=== PATIENT | male | born 1980 | race American Indian/Alaskan Native ===

== ENCOUNTER 2020-02-16 17:08 | Emergency (ER) | payer OTHER, SELFPAY ==
[2020-02-16 17:21] VITALS: BP 138/98; PULSE 104; RESP 16; TEMP 37.1; O2SAT 98; BMI 27.4
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
[2020-02-16 18:00] VITALS: BP 128/88; PULSE 97; RESP 18; O2SAT 99
[2020-02-16 19:19] LABS: Ethanol < 10 mg/dL
[2020-02-16 20:00] VITALS: PULSE 81; RESP 16; O2SAT 97
[2020-02-16 22:00] VITALS: BP 121/74; PULSE 84; RESP 16; TEMP 37.3; O2SAT 98
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
== END 2020-02-17 | disposition home or self-care (01) ==
PROVIDERS: Nurse Practitioner Primary Care; Emergency Provider Student in an Organized Health Care Education/Training Program
DX: S60.415A Abrasion of left ring finger, initial encounter (principal); W26.8XXA Contact with other sharp object(s), not elsewhere classified, initial encounter; F16.10 Hallucinogen abuse, uncomplicated; Y93.89 Activity, other specified; Y92.010 Kitchen of single-family (private) house as the place of occurrence of the external cause; Y99.9 Unspecified external cause status
CPT/HCPCS: 36415; 80320; 99284

== ENCOUNTER 2020-10-03 01:45 | Emergency (ER) | payer OTHER, SELFPAY ==
[2020-10-03 01:51] VITALS: BP 163/99; PULSE 78; RESP 16; TEMP 36.7; O2SAT 98; BMI 26.6
--- NOTE | 2020-10-03 01:58 | PC.NURSE ---
pt to room, chg into gown and awaiting for md's eval.
--- NOTE | 2020-10-03 02:20 | ED_ITS ---
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 In addition, he denies any radiation into either lower extremity, denies urinary symptoms as well as no evidence of fever chills. Related Data Previous Rx's Medication Instructions Recorded cyclobenzaprine 10 mg tablet 10 mg PO BEDTIME PRN #3 tab 10/03/20 ketorolac 10 mg tablet 10 mg PO Q6H PRN 5 Days #20 tab 10/03/20 Allergies Allergy/AdvReac Type Severity Reaction Status Date / Time No Known Allergies Allergy Unverified 11/04/19 17:45 Review of Systems Review of Systems: Pertinent positives and negatives as stated in the HPI and 10 point review of systems is otherwise negative. PMFSH Past Medical History Source: nursing notes reviewed Medical History No known health problems Social History Social History Advance Directives: No Physical Exam Vital Signs: Vital Signs: Last Vital Signs Temp 98.0 F 10/03/20 01:51 Pulse 78 10/03/20 01:51 Resp 16 10/03/20 01:51 BP 163/99 H 10/03/20 01:51 Pulse Ox 98 10/03/20 01:51 Body Mass Index 26.6 VITAL SIGNS: Reviewed. GENERAL: Well developed, well nourished, in no acute distress. HEAD: Normocephalic/atraumatic EYES: PERRLA, EOMI LUNGS: Normal breath sounds. No adventitious sounds or accessory muscle use. SpO2<98> CARDIOVASCULAR: Regular rate and rhythm without noted murmurs ABDOMEN: Soft, non-tender, non-distended with bowel sounds, no CVA tenderness BACK: No mid vertebral tenderness on palpation, no paraspinal discomfort on palpation, straight leg test negative NEUROLOGIC: Alert and oriented x 4. Strength and sensation to light touch were grossly intact x 4. Course Course Course Narrative: 40-year-old male with history and clinical presentation consistent with acute on chronic back pain likely secondary to exacerbating event during work. Patient given combination analgesics to include lidocaine patch and Flexeril as well as UA and will re-evaluate. Review of all investigations otherwise negative for acute findings and on re- evaluation patient reports some mild relief and he was encouraged to continue with the regimen provided in the discharge instructions and follow-up with his primary care provider. MDM - Back Pain/Injury Lab Data Labs: Lab Results 10/03/20 Range/Units 02:31 Urine Color STRAW Urine Appearance CLEAR Urine pH 6.0 (5.0-8.0) Ur Specific Wells 1.010 (1.005-1.025) Urine Protein NEG (NEG-TRACE) MG/DL Urine Glucose (UA) NEG (NEG) MG/DL Urine Ketones NEG (NEG) MG/DL Urine Blood NEG (NEG) Urine Nitrite NEG (NEG) Ur Leukocyte Esterase NEG (NEG) Discharge Plan Discharge Clinical Impression: Back pain, Muscle spasm Patient Disposition: Home, Self-Care Additional Instructions: 1. Tylenol 1000 mg, orally, every 6 hours as needed for pain control. Do not exceed 4000 mg within 24 hours. 2. Yaup-fsu-[id number] lidocaine patch, apply to area of maximal tenderness as directed on the outside packaging. 3. Follow-up with your primary care provider in the next 2-3 days for re- evaluation and further outpatient management. Return to the ER for acute worsening of symptoms. Prescriptions: New ketorolac 10 mg tablet 10 mg PO Q6H PRN (Reason: pain) 5 Days Qty: 20 RF: 0 cyclobenzaprine 10 mg tablet 10 mg PO BEDTIME PRN (Reason: muscle spasm) Qty: 3 RF: 0 Referrals: Physician,Unknown [Primary Care Provider] - 2 days Stand Alone Forms: Work/School Release
[2020-10-03] MEDS: Ketorolac Tromethamine 15 MG/ML VIAL IM (02:26)
[2020-10-03] MEDS: Acetaminophen 325 MG TABLET 975 MG PO (02:26)
[2020-10-03] MEDS: Lidocaine 4 % Patch ADH..PATCH 1 PATCH TRANSDERMA (02:27)
[2020-10-03 02:37] LABS: Glucose Urine UA NEG (NEG); Leukocyte Esterase Urine NEG (NEG); Nitrite Urine NEG (NEG); Urine Blood NEG (NEG); Urine Ketones NEG (NEG); Urine Protein NEG (NEG-TRACE)
--- NOTE | 2020-10-03 02:38 | PC.NURSE ---
PT MEDICATED FOR PAIN. UA SENT TO LAB.
[2020-10-03 02:44] LABS: Appearance Urine CLEAR; Color Urine STRAW
[2020-10-03] MEDS: Cyclobenzaprine HCl 10 MG TABLET PO (03:10)
--- NOTE | 2020-10-03 03:12 | PC.NURSE ---
PT MEDICATED FOR PAIN.
== END 2020-10-03 03:40 | disposition home or self-care (01) ==
PROVIDERS: Emergency Provider Student in an Organized Health Care Education/Training Program
DX: M54.5 Low back pain (principal); M62.830 Muscle spasm of back
CPT/HCPCS: 81003; 96372; 99283; 99284; J1885

== ENCOUNTER 2020-10-08 14:09 | Emergency (ER) | payer OTHER, SELFPAY ==
[2020-10-08 14:27] VITALS: BP 140/80; PULSE 88; RESP 18; TEMP 36.6; O2SAT 99; BMI 26.6
--- NOTE | 2020-10-08 15:16 | ED_ITS ---
HPI - Back Pain/Injury General Chief Complaint: Back Pain/Injury Stated Complaint: back pain Time Seen by Provider: 10/08/20 15:15 History of Present Illness HPI Narrative: Patient complains of low back pain for the last 3 weeks, he was seen here 1 week ago and given Motrin and cyclobenzaprine and a lidocaine patch with no improvement, there is no numbness weakness or tingling, there is no radiation of pain there is no changes to bowel or bladder there was no trauma Related Data Previous Rx's Medication Instructions Recorded cyclobenzaprine 10 mg tablet 10 mg PO BEDTIME PRN #3 tab 10/03/20 ketorolac 10 mg tablet 10 mg PO Q6H PRN 5 Days #20 tab 10/03/20 ibuprofen 600 mg tablet 600 mg PO Q6H PRN #20 tab 10/08/20 oxycodone 5 mg tablet 5 mg PO Q6H PRN #14 tab 10/08/20 oxycodone 5 mg tablet 5 mg PO Q6H PRN #14 tab 10/08/20 oxycodone 5 mg tablet 5 mg PO Q6H PRN #14 tab 10/08/20 Allergies Allergy/AdvReac Type Severity Reaction Status Date / Time No Known Allergies Allergy Unverified 11/04/19 17:45 Review of Systems Review of Systems: Positive for back pain Negatives are no fever no chills no dizziness no weakness no fainting no feeling faint no headache no neck pain no numbness weakness or tingling no radiation of pain no chest pain no abdominal pain no dysuria no frequency no incontinence no changes to bowel or bladder no skin rash no muscle weakness no loss of sensation Yes all other systems are reviewed and are negative [facility] Past Medical History Source: nursing notes reviewed Medical History No known health problems Social History Social History Advance Directives: No Advance Directives Information Provided: No Physical Exam Vital Signs: Vital Signs: Last Vital Signs Temp 98 F 10/08/20 14:27 Pulse 88 10/08/20 14:27 Resp 18 10/08/20 14:27 BP 140/80 H 10/08/20 14:27 Pulse Ox 99 10/08/20 14:27 Body Mass Index 26.6 General appearance is no acute distress Head is normocephalic atraumatic Neck is supple nontender Respiratory no distress Abdomen soft nontender The back had bilateral paraspinal lower lumbar tenderness, no midline tenderness no CVA tenderness, skin was normal without rash wound or redness Extremities full range of motion x4 Neuro no focal motor or sensory deficits Course Course Course Narrative: Patient with back pain with no evidence of infection no neurologic deficit no changes to bowel or bladder is treated with analgesics for musculoskeletal back pain Discharge Plan Discharge Clinical Impression: Back pain Patient Disposition: Home, Self-Care Additional Instructions: You can use Motrin and Tylenol as base pain relief If needed you can use oxycodone narcotic but not if you driving or working Follow with primary doctor, Chiropractor is often helpful with this Return any concerns Prescriptions: New oxycodone 5 mg tablet 5 mg PO Q6H PRN (Reason: pain) Qty: 14 RF: 0 ibuprofen 600 mg tablet 600 mg PO Q6H PRN (Reason: pain) Qty: 20 RF: 0 oxycodone 5 mg tablet 5 mg PO Q6H PRN (Reason: pain) Qty: 14 RF: 0 oxycodone 5 mg tablet 5 mg PO Q6H PRN (Reason: pain) Qty: 14 RF: 0 No Action ketorolac 10 mg tablet 10 mg PO Q6H PRN (Reason: pain) 5 Days Qty: 20 RF: 0 cyclobenzaprine 10 mg tablet 10 mg PO BEDTIME PRN (Reason: muscle spasm) Qty: 3 RF: 0 Stand Alone Forms: Work/School Release Interventions: ED Discharge Assessment Last Done: 10/08/20 15:29 Discharge Date/Time: 10/08/20 15:30
== END 2020-10-08 15:30 | disposition home or self-care (01) ==
PROVIDERS: Emergency Provider Emergency Medicine
DX: M54.5 Low back pain (principal); Z79.899 Other long term (current) drug therapy
CPT/HCPCS: 99283

== ENCOUNTER 2022-10-27 18:53 | Emergency (ER) | payer MEDICAID, SELFPAY ==
[2022-10-27 19:09] VITALS: BP 129/84; PULSE 96; RESP 16; TEMP 36.3; O2SAT 97; BMI 27.2
--- NOTE | 2022-10-27 19:09 | ED_ITS ---
HPI - General Adult General Chief complaint: General Medical Stated complaint: facial swelling Source: patient Mode of arrival: ambulatory Limitations: no limitations History of Present Illness HPI narrative: Patient is a 42-year-old male who presents emergency department for evaluation of facial swelling Reports that after eating dinner he began feeling itching sensation to the left jaw, then developed localized swelling to this area of the mandible without pain. Denies fevers, chills, ear pain. Denies respiratory involvement. Speakingclear full sentences. Able to open mouth fully Related Data Previous Rx's Medication Instructions Recorded cyclobenzaprine 10 mg tablet 10 mg PO BEDTIME PRN muscle spasm 10/03/20 #3 tabs ketorolac 10 mg tablet 10 mg PO Q6H PRN pain 5 days #20 10/03/20 tabs ibuprofen 600 mg tablet 600 mg PO Q6H PRN pain #20 tabs 10/08/20 oxycodone 5 mg tablet 5 mg PO Q6H PRN pain #14 tabs 10/08/20 oxycodone 5 mg tablet 5 mg PO Q6H PRN pain #14 tabs 10/08/20 oxycodone 5 mg tablet 5 mg PO Q6H PRN pain #14 tabs 10/08/20 Allergies Allergy/AdvReac Type Severity Reaction Status Date / Time No Known Allergies Allergy Verified 10/27/22 19:08 Review of Systems Review of Systems: Yes all other systems are reviewed and are negative PMFSH Past Medical History Attestation statement: The following information was validated with the patient. Source: old records reviewed Medical History No known health problems Social History Social History Advance Directives: No Advance Directives Information Provided: No Physical Exam ED Vital Signs: Vital Signs - 24 hr 10/27/22 19:09 Temperature 97.3 F Pulse Rate 96 Respiratory Rate 16 Blood Pressure 129/84 Pulse Oximetry 97 Oxygen Delivery Method Room Air BMI result Body Mass Index 27.2 Appearance: Alert.?Oriented to person, place and time. No acute distress.?Normal affect. Eyes: Pupils equal, round and reactive to light.? ENT: Pharynx normal.??Uvula midline. No trismus. No drooling. TM normal bilaterally Neck: Normal inspection.? Neck supple.??No cervical lymphadenopathy. Localized swelling to the left mandibular region, consistent with parotitis CVS: Heart sounds normal. Normal heart rate and rhythm.? Pulses normal.?? Respiratory: No respiratory distress.? Lung sounds clear to auscultation bilaterally?? Abdomen: Soft and non-tender. Normoactive bowel sounds. Skin: Skin warm and dry.? Normal skin color.? Neuro: Moves all extremities spontaneously. Sensation intact bilaterally. CN II- XII intact. No focal neuro deficits. Ambulates with normal steady gait. Medical Decision Making Medical Decision Making MDM Narrative: Patient is a 42 old male presents emergency department for evaluation of facial swelling as per HPI. Physical examination appears most consistent with acute parotitis. At this time appears to be absent from any sign of infection no fever, significant tenderness upon palpation, purulent saliva noted in the oral orifice, or foul taste in the mouth. Suspect it is likely obstructive in nature, no visible sialolithiasis upon examination. We discussed conservative treatment including salivary stimulants including sour candies, localized heat, hydration, gentle massage the gland, with expectation that it should resolve within 1-5 days. Differential Diagnosis Differential Diagnoses: The differential diagnosis associated with the presentation includes (As noted above) Independent Historian Clinical information obtained from an independent historian. History obtained from or confirmed by: Spouse (Present who confirms history) Tests considered The following testing was considered but not selected: Serum labs and CT imaging, no signs of infectious etiology at this time, see narrative above, deferred Discharge Plan Discharge Clinical Impression: Acute parotitis Patient Disposition: Home, Self-Care Instructions: Parotid Duct Obstruction (ED), Sialoadenitis (ED) Additional Instructions: As discussed at this time it appears to be inflammation to the parotid gland, which is likely due to an obstruction of the salivary duct. This can happen very abruptly as described. Currently there is no sign of infection given rapid onset and you are without any fever, pain, or redness. Treatment of this includes consuming sour candies, applying localized heat, staying well hydration, gentle massage the gland/ area that is swollen, with expectation that it should resolve within 1-5 days. You may follow-up with your primary care doctor. If you develop new or worsening symptoms or concerns may return back to the emergency department for further evaluation Prescriptions: No Action oxycodone 5 mg tablet 5 mg PO Q6H PRN (Reason: pain) Qty: 14 0RF Rx Instructions: Narcotic, no driving for 6 hours after taking this medication ibuprofen 600 mg tablet 600 mg PO Q6H PRN (Reason: pain) Qty: 20 0RF oxycodone 5 mg tablet 5 mg PO Q6H PRN (Reason: pain) Qty: 14 0RF Rx Instructions: Narcotic, no driving for 6 hours after taking this medication oxycodone 5 mg tablet 5 mg PO Q6H PRN (Reason: pain) Qty: 14 0RF Rx Instructions: This medication may cause drowsiness no driving for 6 hours after taking ketorolac 10 mg tablet 10 mg PO Q6H PRN (Reason: pain) 5 Days Qty: 20 0RF cyclobenzaprine 10 mg tablet 10 mg PO BEDTIME PRN (Reason: muscle spasm) Qty: 3 0RF Interventions: ED Discharge Assessment Last Done: 10/27/22 19:59 Discharge Date/Time: 10/27/22 20:26
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
--- OUTSIDE RECORDS SUMMARY | 2022-10-27 20:02 | XMS_ITS | Continuity of Care Document ---
Author Name Unknown Organization [facility] ter Address [address] [place] [id number]- Care Team Providers Care Cloth Folder Machine Name Role Phone Adi URRUTIA, Yulia Banks Primary Care Physician [phone] Encounter [facility] Date(s): 03/23/20 - 03/30/[address] [id number] Discharge Disposition: Transfer to [facility] Facility Attending Physician: Aisha Mendoza MD Admitting Physician: Hans Churchill MD Referring Physician: Not on Staff, Referring MD Allergies, Adverse Reactions, Alerts No Known Medication Allergies Substance Reaction Severity Status NKA Active Medications acetaminophen 325 mg oral tablet 650 mg, 2, tablet, By Mouth, Every 4 hours, PRN, pain/fever, Refills 0, Maintenance, Other, 03/30/20 13:37:00 EST, Partial fill upon patient request if the prescription is for a schedule II opioid drug. Start Date: 03/30/20 Status: Ordered haloperidol 5 mg oral tablet 5 mg, 1, tablet, By Mouth, 3 times a day, PRN, Refills 0, Maintenance, Agitation, 03/30/20 13:37:00EST, Partial fill upon patient request if the prescription is for a schedule II opioid drug. Start Date: 03/30/20 Status: Ordered haloperidol 5 mg/mL injectable solution 1 mL = 5 mg, Intramuscular, 3 times a day, PRN Agitation, 0 Refills, Maintenance, 03/30/20 13:37:00EST, Injection, Partial fill upon patient request if the prescription is for a schedule II opioid drug. Start Date: 03/30/20 Status: Ordered Melatonin Tablet = 6 mg, By Mouth, Daily at bedtime, PRN Insomnia, 0 Refills, Maintenance, 03/30/20 13:37:00 EST, Tablet, Partial fill upon patient request if the prescription is for a schedule II opioid drug. Start Date: 03/30/20 Status: Ordered Multivitamin Tablet 1 tablet, By Mouth, Daily, 0 Refills, Maintenance, 03/30/20 13:37:00 EST, Tablet, Partial fill uponpatient request if the prescription is for a schedule II opioid drug. Start Date: 03/30/20 Status: Ordered Nicotine = 21 mg, Topically, Daily, 0 Refills, Maintenance, 03/30/20 13:37:00 EST, Patch, Partial fill upon patient request if the prescription is for a schedule II opioid drug. Start Date: 03/30/20 Status: Ordered nicotine 4 mg oral transmucosal gum = 4 mg, Chew, Every hour, PRN Other, Nicotine Withdrawal Symptoms (NOT to exceed 24 pieces per day), 0 Refills, Maintenance, 03/30/20 13:37:00 EST, Gum, Partial fill upon patient request if the prescription is for a schedule II opioid drug. Start Date: 03/30/20 Status: Ordered Pyridoxine Tablet 50 mg, By Mouth, Daily, Refills 0, Maintenance, 03/30/20 13:38:00 EST, Partial fill upon patient request if the prescription is for a schedule II opioid drug. Start Date: 03/30/20 Status: Ordered thiamine 100 mg oral tablet 100 mg, 1, tablet, By Mouth, 2 times a day, Refills 0, Maintenance, 03/30/20 13:38:00 EST, Partial fill upon patient request if the prescription is for a schedule II opioid drug. Start Date: 03/30/20 Status: Ordered traMADol 50 mg oral tablet 1 tablet = 50 mg, By Mouth, Every 8 hours, PRN for pain, # 60 tablet, 0 Refills, Maintenance, 03/23/20 9:57:00 EST, Tablet, Partial fill upon patient request if the prescription is for a schedule II opioid drug. Start Date: 03/23/20 Status: Ordered traZODone 50 mg oral tablet 200 mg, 4, tablet, By Mouth, Daily at bedtime, Refills 0, Maintenance, 03/30/20 13:36:00 EST, Partial fill upon patient request if the prescription is for a schedule II opioid drug. Start Date: 03/30/20 Status: Ordered Results Orders for Microbiology Reports Name Date Sputum Culture w/ Gram Smear 03/23/20 Microbiology Reports TEST:Sputum Culture STATUS:Auth (Verified) BODY SITE: SOURCE:ENDOTR COLLECTED DATE/TIME:03/23/20 10:40 AM Sputum Culture SPECIMEN DESCRIPTION : ENDOTRACHEAL ASPIRATE SPECIAL REQUESTS : NONE GRAM STAIN : 1+ SQ.EPITHELIAL CELLS 1+ GRAM POSITIVE COCCI CULTURE : 4+ NORMAL BRIA REPORT STATUS : FINAL 03/25/2020 Radiology Reports * Exam Date Time Procedure Performing Provider Status 03/23/20 11:56 AM Chest Portable Preeti Rosenberg; Auth (Verified) Notes: (Chest Portable) Reason For Exam: Cough RESULT: Chest Portable Chest Portable INDICATION: Cough, follow-up tube placement. COMPARISON: Earlier the same day. FINDINGS: Single AP semiupright portable chest x-ray labeled ET tube, OG tube, 11:35 AM. LINES AND TUBES: Endotracheal tube has been withdrawn currently 3 to 4 cm above the dahlia. Enteric tube remains in position with its tip in proximal sidehole in the proximal stomach. LUNGS AND PLEURA: Minimal basilar atelectasis, left side greater than right. No definite infiltrate. No pleural effusion. No pneumothorax. HEART, MEDIASTINUM AND HEENA: Heart is normal in size. Normal upper mediastinal and hilar contour. BONES AND SOFT TISSUES: No acute abnormality. IMPRESSION: Enteric and endotracheal tubes appear in appropriate positions. Left basilar atelectasis versus evolving infiltrate. WSN: [id number] Ordering Physician: Nicolasa Limon Dictated By: Tavon Serrano MD Dictated Date/Time: 03/23/20 1:47 pm Reviewed By: Tavon Serrano MD Signed By: Tavon Serrano MD Signed Date/Time: 03/23/20 1:47 pm Transcribed By: ANA Transcribed Date/Time: 03/23/20 1:44 pm * Exam Date Time Procedure Performing Provider Status 03/23/20 8:04 AM Chest Portable Lindsay Marley; Auth (Verified) Notes: (Chest Portable) Reason For Exam: Line/Tube Placement;Other: RESULT: Chest Portable Chest Portable Reason: Respiratory distress, Line Tube Placement COMPARISON: February 17, 2020 FINDINGS: LINES AND TUBES: Endotracheal tracheal tube in the distal trachea with its tip about 1 cm above the dahlia. Enteric catheter has its tip in proximal sidehole overlying the stomach. LUNGS AND PLEURA: Low lung volumes with bibasilar and right upper lobe atelectasis/infiltrate. No pleural effusion. No pneumothorax. HEART, MEDIASTINUM AND HEENA: Heart is normal in size. Normal upper mediastinal and hilar contour. BONES AND SOFT TISSUES: No acute abnormality. IMPRESSION: Endotracheal tube with tip 1 cm above the dahlia. Enteric catheter tip in the stomach. Low lung volumes with bibasilar and right upper lobe atelectasis/infiltrate. WSN: [id number] Ordering Physician: Tae Francois Dictated By: Jose Antonio Lara MD Dictated Date/Time: 03/23/20 8:16 am Reviewed By: Jose Antonio Lara MD Signed By: Jose Antonio Lara MD Signed Date/Time: 03/23/20 8:16 am Transcribed By: ANA Transcribed Date/Time: 03/23/20 8:15 am Vital Signs Most recent to oldest [Reference Range]: 1 2 3 Weight 82 kg (03/29/20 5:36 AM) 76.294 kg (03/28/20 8:35 AM) 75.9 kg (03/26/20 5:41 AM) Oxygen Saturation [94-100 %] 98 % (03/30/20 4:31 PM) 100 % (03/30/20 11:48 AM) 100 % (03/30/20 7:24 AM) Pulse Rate [55-90 bpm] 101 bpm *H* (03/30/20 4:31 PM) 79 bpm (03/30/20 11:48 AM) 63 bpm (03/30/20 7:24 AM) Blood Pressure [90-138/55-84 mm Hg] 136/93mm Hg (03/30/20 4:31 PM) 141/79mm Hg *H* (03/30/20 11:48 AM) 109/53mm Hg (03/30/20 7:24 AM) Respiratory Rate [16-30 br/min] 18 br/min (03/30/20 4:31 PM) 18 br/min (03/30/20 11:48 AM) 18 br/min (03/30/20 7:24 AM) Temperature [96.8-100.4 DegF] 97.7 DegF (03/30/20 4:31 PM) 98.1 DegF (03/30/20 11:48 AM) 98.2 DegF (03/30/20 7:24 AM) Liters per Minute 2 L/min (03/25/20 8:04 AM) 2 L/min (03/25/20 7:00 AM) 2 L/min (03/25/20 6:00 AM) Mode of Delivery (Oxygen) Room air (03/30/20 4:31 PM) Room air (03/30/20 11:48 AM) Room air (03/30/20 7:24 AM) Blood pressure sites Arm, right (03/30/20 4:31 PM) Arm, right (03/30/20 11:48 AM) Arm, right (03/30/20 7:24 AM) Temperature Route Oral (03/30/20 4:31 PM) Oral (03/30/20 11:48 AM) Oral (03/30/20 7:24 AM) Dry Weight 75.6 kg (03/23/20 10:36 AM) Weight Obtained Via Bed scale (03/29/20 5:36 AM) Standing scale (03/28/20 8:35 AM)
--- OUTSIDE RECORDS SUMMARY | 2022-10-27 20:02 | XMS_ITS | Continuity of Care Document ---
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 Name Role Phone Not on Staff, PCP Primary Care Physician Unavail able [place] [facility] - 02/15/[address] [address]- Encounter Diagnosis Ingestion of toxic substance(Final) - 02/15/20 Discharge Disposition: A-D/C Home Attending Physician: Javon Plummer MD Admitting Physician: Javon Plummer MD Referring Physician: Not on Staff, Referring MD Allergies, Adverse Reactions, Alerts No Known Medication Allergies Vital Signs Most recent to oldest [Reference Range]: 1 2 3 Oxygen Saturation [94-100 %] 100 % (02/15/20 1:45 PM) 99 % (02/15/20 12:05 PM) 99 % (02/15/20 10:17 AM) Pulse Rate [55-90 bpm] 87 bpm (02/15/20 1:45 PM) 76 bpm (02/15/20 12:05 PM) 74 bpm (02/15/20 10:17 AM) Blood Pressure [90-138/55-84 mm Hg] 161/87mm Hg *H* (02/15/20 1:45 PM) 125/86mm Hg (02/15/20 12:05 PM) 124/65mm Hg (02/15/20 10:17 AM) Respiratory Rate [16-30 br/min] 19 br/min (02/15/20 1:45 PM) 22 br/min (02/15/20 12:05 PM) 21 br/min (02/15/20 10:17 AM) Temperature [96.8-100.4 DegF] 98.8 DegF (02/15/20 8:18 AM) Mode of Delivery (Oxygen) Room air (02/15/20 1:45 PM) Room air (02/15/20 12:05 PM) Room air (02/15/20 10:17 AM) Temperature Route Rectal (02/15/20 8:18 AM)
--- OUTSIDE RECORDS SUMMARY | 2022-10-27 20:02 | XMS_ITS | Continuity of Care Document ---
Author Name Unknown Organization [facility] Address [address] [place] [address]- Care Team Providers Care Flow Coordinator Name Role Phone Not on Staff, PCP Primary Care Physician Unavail able Encounter [facility] Date(s): 11/09/21 - 12/09/21 [facility] [address] [place] [id number] Allergies, Adverse Reactions, Alerts No Known Allergies Immunizations Not Given Vaccine Date Status Refusal Reason influenza virus vaccine, inactivated 03/31/20 Not Given Patient Refuses Medications Melatonin Tablet = 6 mg, By Mouth, Daily at bedtime, PRN Insomnia, 0 Refills, Maintenance, 03/30/20 13:37:00 EST, Tablet, Partial fill upon patient request if the prescription is for a schedule II opioid drug. Start Date: 03/30/20 Status: Ordered mirtazapine 15 mg oral tablet 0.5 tablet = 7.5 mg, By Mouth, Daily at bedtime, # 15 tablet, 0 Refills, Maintenance, 04/03/20 16:34:00 EST, Tablet, Partial fill upon patient request if the prescription is for a schedule II opioid drug. Start Date: 04/03/20 Stop Date: 05/03/20 Status: Ordered Multivitamin Tablet 1 tablet, By [...] opioid drug. Start Date: 03/30/20 Status: Ordered traZODone 100 mg oral tablet 100 mg, 1, tablet, By Mouth, Daily at bedtime, # 14 tablet, Refills 1, Tot. Refills 1, Maintenance,04/03/20 16:34:00 EST, Print Requisition, Partial fill upon patient request if the prescription is for a schedule II opioid drug. Start Date: 04/03/20 Stop Date: 05/01/20 Status: Ordered Patient Care team information Personnel Name: Not on Staff, PCP
== END 2022-10-27 20:26 | disposition home or self-care (01) ==
PROVIDERS: Emergency Provider Emergency Medicine Emergency Medical Services; PCP General Practice
DX: K11.21 Acute sialoadenitis (principal)
CPT/HCPCS: 99282

== ENCOUNTER 2023-07-18 12:13 | Emergency (ER) | payer OTHER, MEDICAID, SELFPAY ==
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
[2023-07-18 12:21] VITALS: BP 152/97; BP 172/120; PULSE 63; PULSE 72; RESP 12; TEMP 36.7; O2SAT 98; BMI 28.1
[2023-07-18 12:24] VITALS: BP 152/97; PULSE 71; RESP 24; O2SAT 98
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
[2023-07-18] MEDS: Ondansetron ODT 4 MG TAB.RAPDIS TRANSLINGU (12:56)
[2023-07-18] MEDS: Acetaminophen 325 MG TABLET 975 MG PO (12:56)
[2023-07-18] MEDS: oxyCODONE HCl Immed Release 5 MG TABLET 10 MG PO ×2 (12:56→16:10)
[2023-07-18 13:03] LABS: MANUAL DIFF FLAG NO
[2023-07-18 13:06] LABS: Basophils Percent Auto 0.4 % (0-2); Eosinophils Absolute Auto 0.1 X10*3/uL (0.0-0.4); Eosinophils Percent Auto 1.6 % (0-4); Hematocrit 43.1 % (42.0-52.0); Hemoglobin 14.7 g/dl (14.0-18.0); Imm Gran Abs Auto 0.02 X10*3/uL (0.00-0.03); Imm Gran Pct Auto 0.2 % (0.0-0.4); Lymphocytes Absolute Auto 2.1 X10*3/uL (1.2-4.9); Lymphocytes Percent Auto 23.5 % (20-40); Mean Corpuscular HGB Conc 34.1 g/dl (31.0-36.0); Mean Corpuscular Hemoglobin 30.7 pg (27.0-33.0); Mean Platelet Volume 10.3 fL (9.4-12.4); Monocytes Absolute Auto 0.7 X10*3/uL (0.1-1.2); Monocytes Percent Auto 7.8 % (2-11); Neutrophils Percent Auto 66.5 % (45-73); Platelet Count 334 X10*3/uL (160-400); Red Blood Count 4.79 X10*6/uL (4.60-5.80); Red Cell Distribution Width 13.3 % (11.0-16.0)
[2023-07-18 13:21] LABS: Alanine Aminotransferase 23 U/L (0-40); Albumin Level 4.4 g/dL (3.5-5.0); Alkaline Phosphatase 73 U/L (39-117); Anion Gap 12 (12-20); Aspartate Amino Transferase 17 U/L (5-37); Bilirubin Direct 0.1 mg/dL (0.0-0.5); Bilirubin Total 0.3 mg/dL (0.0-1.0); Blood Urea Nitrogen 14 mg/dL (9-16); Calcium 9.4 mg/dL (8.4-10.2); Carbon Dioxide 27 mmol/L (22-29); Chloride 109 mmol/L (96-108); Creatinine Clr Calc Pharmacy 138.5; Estimated Glomerular Filt Rate > 60; Glucose Random 126 mg/dL (60-115); Lipase 28 U/L (8-78); Magnesium 2.1 mg/dL (1.6-2.6); Potassium 3.5 mmol/L (3.3-5.1); Sodium 144 mmol/L (135-145); Total Protein 7.4 g/dL (6.5-8.0)
[2023-07-18 14:43] LABS: Appearance Urine Clear; Color Urine Yellow; Glucose Urine UA Negative (Negative); Leukocyte Esterase Urine Negative (Negative); Nitrite Urine Negative (Negative); PH 6.5 (5.0-9.0); Specific Gravity - Urine 1.025 (1.005-1.025); Urine Blood Negative (Negative); Urine Ketones Negative (Negative); Urine Protein Negative (Neg-Trace)
[2023-07-18 16:08] VITALS: BP 133/73; PULSE 49; RESP 14; O2SAT 97
[2023-07-18 17:14] VITALS: BP 153/97; PULSE 54; RESP 15; TEMP 36.7; O2SAT 99
== END 2023-07-18 17:40 | disposition home or self-care (01) ==
PROVIDERS: Emergency Medicine; Emergency Provider Emergency Medicine Emergency Medical Services; PCP General Practice
DX: S01.511A Laceration without foreign body of lip, initial encounter (principal); S09.93XA Unspecified injury of face, initial encounter; V23.41XA Electric (assisted) bicycle driver injured in collision with car, pick-up truck or van in traffic accident, initial encounter; Y93.55 Activity, bike riding; Y92.488 Other paved roadways as the place of occurrence of the external cause; Y99.9 Unspecified external cause status
CPT/HCPCS: 12011; 36415; 70450; 70486; 71250; 72125; 80048; 80076; 81003; 83690; 83735; 85025; 99284

== ENCOUNTER 2023-10-31 11:48 | Outpatient (REF) | payer MEDICAID, SELFPAY ==
--- NOTE | ~2023-10-31 | XR_ITS ---
EXAMINATION: XR ELBOW, RIGHT CLINICAL INFORMATION: Right elbow pain. Lateral elbow pain. COMPARISON: None available. TECHNIQUE: AP, lateral, and oblique views of the right elbow. FINDINGS: There is a small olecranon spur. No overlying soft tissue swelling. Remaining bones and joints are normal. No effusion. XR/XR elbow RT min 3V IMPRESSION: Small olecranon spur. Electronically signed by: Reji Perkins MD 11/06/2023 08:15 PM EDT
== END 2023-10-31 11:49 | disposition home or self-care (01) ==
LOC: HO.HHCX 11:48
PROVIDERS: Visit Provider Nurse Practitioner
DX: M25.521 Pain in right elbow (principal)
CPT/HCPCS: 73080

== ENCOUNTER 2024-05-06 14:51 | Outpatient (REF) | payer MEDICAID, SELFPAY ==
[2024-05-09 14:19] LABS: TS Negative Control Passed; TS Panel A 0; TS Panel B 0; TS Positive Control Passed; TSpotTB Negative (Negative)
== END 2024-05-06 14:52 | disposition home or self-care (01) ==
LOC: HO.HHCL 14:51
PROVIDERS: Visit Provider General Practice
DX: Z11.1 Encounter for screening for respiratory tuberculosis (principal)
CPT/HCPCS: 36415; 86481

== ENCOUNTER 2024-12-17 10:16 | Outpatient (AMB) | payer MEDICAID, SELFPAY ==
--- NOTE | 2024-12-17 10:39 | A.OFFVIS_ITS ---
Vital Signs 3 12/17/24 10:43 Height 5 ft 9 in Weight 182 lb 8 oz BMI 26.9 BP 131/81 Blood Pressure Location Lt brachial Position Sitting Pulse 80 Intake Visit Reasons: Lipoma Intake Note: Patient is seen in office for evaluation of a lipoma of the back of the arm. Pt c/o: onset one year, has increase in size, painful, tried squezing bloody discharge, denies any other concerns [employer] Required: No Accompanied by: Family/Other Allergies No Known Allergies Allergy (Verified 12/17/24 10:45) Medication List - Last Reconciled 12/17/24 by Grady Chris MD ketorolac 10 mg PO Q6H PRN 5 days tramadol 100 mg PO Q8H PRN HPI Comments Details: 44-year-old male presenting with a mass on the left forearm which has been increasing in size and seems to be causing numbness in the arm. He 1st noted the lump approximately 1 year ago and feels it has become larger and harder over time. He reports squeezing it and causing the lesion to pop which decreased the amount of pain but still he feels this lump internally. He has no history of trauma to the arm but is concerned about it having increased in size. He is requesting excision. [facility] Medical History No known health problems Social History Patient Tobacco Use Status: Never used Tobacco Substance Use Type: Marijuana Review of Systems Const All systems reviewed & are unremarkable except as noted in HPI and below Physical Exam Vital Signs: BMI result Body Mass Index 26.9 Const General: cooperative and no acute distress Nutritional Appearance: well nourished Orientation/consciousness: patient oriented x3 Limitations: no limitations HEENT Head: Yes normocephalic and Yes atraumatic Ears: hearing grossly normal bilaterally Resp Effort & Inspection: normal respiratory effort, no audible wheezes, no cough and no respiratory distress Cardio Jugular venous distension: no JVD GI Inspection: Yes normal to inspection Skin Other: Warm, dry, no rash Neuro General: patient oriented x3 Extrem General: Yes no clubbing, cyanosis or edema Elbow/forearm/wrist images: 2 1. 1 cm soft tissue mass suggestive of a lipoma, mobile within the subcutaneous tissue with the overlying bluish discoloration, non fluctuant to palpation. Findings most consistent with a subcutaneous lipoma in the left forearm. Assessment & Plan Assessment & Plan (1) Lipoma of arm: Code(s): D17.20 - Benign lipomatous neoplasm of skin and subcutaneous tissue of unspecified limb Category: Medical Qualifiers: Laterality: left Qualified Code(s): D17.22 - Benign lipomatous neoplasm of skin and subcutaneous tissue of left arm Plan 44-year-old male patient presenting with a symptomatic lipoma of the left forearm which is causing discomfort down his arm. He has requested excision and after discussion of the procedure, risks, and alternatives, consents to the excision of the left forearm lipoma as a office based procedure under local anesthesia. He has been scheduled for this procedure on 01/28/2025 at 11:00. Medications: Discontinued 2 oxycodone This medication may cause drowsiness no driving for 6 hours after taking Discontinued Reason: Patient Completed Course 5 mg PO Q6H PRN 14 tabs 0RF pain cyclobenzaprine Discontinued Reason: Patient Completed Course 10 mg PO BEDTIME PRN 3 tabs 0RF muscle spasm ibuprofen Discontinued Reason: Patient Completed Course 600 mg PO Q6H PRN 20 tabs 0RF pain oxycodone Narcotic, no driving for 6 hours after taking this medication Discontinued Reason: Patient Completed Course 5 mg PO Q6H PRN 14 tabs 0RF pain oxycodone Narcotic, no driving for 6 hours after taking this medication Discontinued Reason: Patient Completed Course 5 mg PO Q6H PRN 14 tabs 0RF pain oxycodone Patient may request partial refill; Partial Fill upon patient request. Discontinued Reason: Patient Completed Course 5 mg PO Q6H PRN 14 tabs 0RF pain acetaminophen (Tylenol Extra Strength) Discontinued Reason: Patient Completed Course 1,000 mg (2 x 500 mg) PO Q6H PRN 20 tabs 0RF fever or pain ibuprofen Discontinued Reason: Patient Completed Course 400 mg PO TID PRN 30 tabs 0RF fever or pain oxycodone Partial Fill upon patient request. Discontinued Reason: Patient Completed Course 5 mg PO Q6H PRN 14 tabs 0RF pain Coding Level of Care Code New Pt Level 4 (50677) Diagnoses Lipoma of left upper extremity D17.22 Laterality: left
[2024-12-17 10:43] VITALS: BP 131/81; PULSE 80; BMI 26.9
--- OUTSIDE RECORDS SUMMARY | 2024-12-17 11:36 | XMS_ITS | Encounter Summary ---
Author Organization [employer] Address [address] [place] [address] Care Team Providers Care Cabinetmaker Supervisor Name Role Phone Yulia Joshi MD Primary Care Provider [phone] Reason for Visit * Reason Comments Med Refill Encounter Details Date Type Department Care Team (Late st Contact Info) Description 05/13/2022 Refill [facility] MEDICINE [address] [place] [id number] Yulia Joshi MD [address] [place] [address] Chronic pain of both shoulders Social History Tobacco Use Types Packs/Day Years Used Date Smoking Tobacco: Never Assessed Sex and Gender Information Value Date Recorded Sex Assigned at Male 12/17/2021 10:31 AM EDT Legal Sex Male 10:31 AM EDT Gender Identity Male 12/17/2021 10:31 AM EDT Sexual Orientation Choose not to disclose 2021 10:31 AM EDT documented as of this encounter Plan of Treatment Upcoming Encounters Date Type Department Care Team (Late st Contact Info) Description 12/22/2024 2:00 PM EST Clinical Support [facility] MEDICINE [address] [place] [address] Dafne Agee RN 12/28/2024 1:00 PM EST Office Visit [facility] CHC ADULT DENTAL [address] [place], [place] [phone] Attila Smith, YAHAIRA [address] [place] [address] documented as of this encounter Visit Diagnoses Diagnosis Chronic pain of both shoulders documented in this encounter Care Teams Cabinetmaker Supervisor Relationship Specialty Start Date End Date Yulia Joshi MD [address] [place] [address] PCP - General Family Medicine 10/22/19 documented as of this encounter
--- OUTSIDE RECORDS SUMMARY | 2024-12-17 11:36 | XMS_ITS | Encounter Summary ---
Author Organization [employer] Address [address] [place] [address] Care Team Providers Care Legal Entity Controller Name Role Phone Yulia Joshi MD Primary Care Provider [phone] Reason for Visit * Reason Comments Med Refill Encounter Details Date Type Department Care Team (Late st Contact Info) Description 05/15/2022 Refill [facility] MEDICINE [address] [place] [phone] Yulia Joshi MD [address] [place] [address] Chronic pain of both shoulders Social History [...] Description 12/22/2024 2:00 PM EST Clinical Support [facility] MEDICINE [address] [place] [address] Dafne Agee RN 12/28/2024 1:00 PM EST Office Visit [facility] CHC ADULT DENTAL [address] [place], [place] [phone] Attila Smith, YAHAIRA [address] [place] [address] documented as of this encounter Visit Diagnoses Diagnosis Chronic pain of both shoulders documented in this encounter Care Teams Legal Entity Controller Relationship Specialty Start Date End Date Yulia Joshi MD [address] [place] [address] PCP - General Family Medicine 10/22/19 documented as of this encounter
--- OUTSIDE RECORDS SUMMARY | 2024-12-17 11:36 | XMS_ITS | Encounter Summary ---
Author Organization [employer] Address [address] [place] [address] [address] [place] [address] Care Team Providers Care Rib Matcher And Fitter Name Role Phone Yulia Joshi MD Primary Care Provider Reason for Visit * Reason Comments Med Refill Encounter Details Date Type Department Care Team (Late st Contact Info) Description 01/05/2024 Refill [facility] MEDICINE [address] [place], [place] [phone] Yulia Joshi MD [address] [place], [place] [phone] Chronic right shoulder pain; Chronic bilateral low back pain with right-sided sciatica Social History Tobacco Use Types Packs/Day Years Used Date Smoking Tobacco: Every Day Cigarettes Smokeless Tobacco: Never Alcohol Use Standard Drinks/Week Comments Not Currently 0 (1 standard drink = 0.6 oz pur e alcohol) Alcohol Answer Date Recorded Frequency of Alcohol Consumption Not on file 06/30/2023 Average Number of Drinks Not on file 024 Frequency of Binge Drinking Not on file 06/17 Score 0 06/30/2023 Depression Answer Date Recorded Patient Health Questionnaire-9 Score 11 01/09/2024 Patient Health Questionnaire-9 Score 11 01/09/2024 Last PHQ-9: Questionnaire Data Not on file 1 03/10/2023 Housing Stability Answer Date Recorded What is your housing situation today? I have calin rosario 12/16/[address] you li ve. Do you have problems with any of the following? None of the above 12/16/2022 Food Insecurity Answer Date Recorded Within the past 12 months, y ou worried that your food would run out before you got money to buy more: Never True 2023 Within the past 12 months,th e food you bought just didn't last and you didn't have enough money to get more: Sometimes True 06/30/2023 Transportation Answer Date Recorded In the past 12 months, has l ack of transportation kept you from medical appts, meetings, work or from getting things needed for daily living? No 06/19/2023 Utilities Answer Date Recorded In the past 12 months, has t he electric, gas, oil or water company threatened to shut off services in your home? No 12/16/2022 Depression Answer Date Recorded Patient Health Questionnaire-2 Score 1 01/09/2024 Sex and Gender Information Value Date Recorded [...] Description 12/22/2024 2:00 PM EST Clinical Support [facility] MEDICINE [address] [place] [address] Dafne Agee RN 12/28/2024 1:00 PM EST Office Visit [facility] CHC ADULT DENTAL [address] [place] [address] Attila Smith, DMD [address] [place] [address] documented as of this encounter Visit Diagnoses Diagnosis Chronic right shoulder pain Pain in joint, shoulder region Chronic bilateral low back pain with right-sided sciatica documented in this encounter Additional Health Concerns Assessment Noted Time PHQ-9 Depression Total Score: 13 024 10:38 AM EDT documented as of this encounter Care Teams Rib Matcher And Fitter Relationship Specialty Start Date End Date Yulia Joshi MD [address] [place] [address] PCP - General Family Medicine 10/22/19 documented as of this encounter
--- OUTSIDE RECORDS SUMMARY | 2024-12-17 11:36 | XMS_ITS | Encounter Summary ---
Author Organization [employer] Address [address] [place] [address] 7 [place] [address] Care Team Providers Care Complaint Evaluation Officer Name Role Phone Yulia Joshi MD Primary Care Provider [phone] Reason for Visit * Reason Onset Date Comments Med Refill 02/20/2022 Encounter Details Date Type Department Care Team (Late st Contact Info) Description 02/20/2022 Refill [facility] MEDICINE [address] [place], [place] [phone] Yulia Joshi MD [address] [place], [place] [phone] Chronic pain of both shoulders (Primary Dx) Social History Tobacco Use Types Packs/Day Years Used Date Smoking Tobacco: Never Assessed Sex and Gender Information Value Date Recorded Sex Assigned at Male 12/17/2021 10:31 AM EDT Legal Sex Male 10:31 AM EDT Gender Identity Male 12/17/2021 10:31 AM EDT Sexual Orientation Choose not to disclose 2021 10:31 AM EDT documented as of this encounter Miscellaneous Notes * Telephone Encounter - Dafne Agee RN - 02/22/2022 8:27 AM EST [phone] - call goes directly to voicemail with someone else's name. Called alternate contact /Luz, who confirmed that the pt's above phone number is no longer active. Requested new phone number, she said to call back in 10 minutes d/t she was driving. Called back in 10 minutes and call went to voicemail. Message left requesting pts new number and to have patient call regarding his medication. * Telephone Encounter - Janice Spence MD - 02/21/2022 3:26 PM EST Re Tramadol, chart notes reviewed, noted that patient was taking Tramadol >6mo ago, PDMP reviewed reports last pickling solution maker on 05/2021. Ap/ I will give patient's a limited amount of tramadol for exacerbation of acute pain only. Please call him and specify that this is only for occasional exacerbations of pain and that he should fu with his PCP if he continues with recurrent or persistent pain, so they can decide on further POC. * Telephone Encounter - Dafne Agee RN - 02/20/2022 11:53 AM EST TC to pt, no answer. Left message requesting callback regarding Tramadol refill request. Medicationhas not been filled since May 2021. * Telephone Encounter - Mac Ryan - 02/20/2022 10:47 AM EST Tc from pt requesting med refill ( Tramadol 50 mg ) documented in this encounter Plan of Treatment Upcoming Encounters Date Type Department Care Team (Late st Contact Info) Description 12/22/2024 2:00 PM EST Clinical Support [facility] MEDICINE [address] [place] [address] Dafne Agee RN 12/28/2024 1:00 PM EST Office Visit [facility] CHC ADULT DENTAL [address] [place] [address] Attila Smith, YAHAIRA [address] [place] [address] documented as of this encounter Visit Diagnoses Diagnosis Chronic pain of both shoulders- Primary documented in this encounter Care Teams Complaint Evaluation Officer Relationship Specialty Start Date End Date Yulia Joshi MD [address] [place] [address] PCP - General Family Medicine 10/22/19 documented as of this encounter
--- OUTSIDE RECORDS SUMMARY | 2024-12-17 11:36 | XMS_ITS | Encounter Summary ---
Author Organization [employer] Address [address] [facility] 7t [place] [address] Care Team Providers Care Food And Drug Inspector Name Role Phone Yulia Joshi MD Primary Care Provider [phone] Reason for Visit * Reason Comments Med Refill Encounter Details Date Type Department Care Team (Late st Contact Info) Description 11/26/2023 Refill [facility] CHC MED & PEDS [address] [place] [phone] Yulia Joshi MD [address] [place] [address] Chronic right shoulder pain; Chronic bilateral low [...] Answer Date Recorded Patient Health Questionnaire-9 Score 13 06/30/2023 Patient Health Questionnaire-9 Score 13 06/30/2023 Last PHQ-9: Questionnaire Data Not on file 0 06/30/2023 Housing Stability Answer Date Recorded What is [...] Answer Date Recorded Patient Health Questionnaire-2 Score 3 06/30/2023 Sex and Gender Information Value Date Recorded [...] Description 12/22/2024 2:00 PM EST Clinical Support [facility] MEDICINE [address] [place] [address] Dafne Agee RN 12/28/2024 1:00 PM EST Office Visit [facility] CHC ADULT DENTAL [address] [place] [address] Attila Smith, DMD [address] [place] [address] documented as of this encounter Visit Diagnoses Diagnosis Chronic right shoulder pain Pain in joint, shoulder region Chronic bilateral low back pain with right-sided sciatica documented in this encounter Additional Health Concerns Assessment Noted Time PHQ-9 Depression Total Score: 13 024 10:38 AM EDT documented as of this encounter Care Teams Food And Drug Inspector Relationship Specialty Start Date End Date Yulia Joshi MD [address] [place] [address] PCP - General Family Medicine 10/22/19 documented as of this encounter
--- OUTSIDE RECORDS SUMMARY | 2024-12-17 11:36 | XMS_ITS | Encounter Summary ---
Author Organization [employer] Address [address] [facility] 7t [place] [address] Care Team Providers Care Lab Analyst Name Role Phone Yulia Joshi MD Primary Care Provider [phone] Reason for Visit * Reason Comments Med Refill Encounter Details Date Type Department Care Team (Late st Contact Info) Description 11/13/2023 Refill [facility] CHC MED & PEDS [address] [place] [phone] Yulia Joshi MD [address] [place] [address] Chronic right shoulder pain; Chronic bilateral low [...] Description 12/22/2024 2:00 PM EST Clinical Support [facility] MEDICINE [address] [place] [address] Dafne Agee RN 12/28/2024 1:00 PM EST Office Visit [facility] CHC ADULT DENTAL [address] [place] [address] Attila Smith, DMD [address] [place] [address] documented as of this encounter Visit Diagnoses Diagnosis Chronic right shoulder pain Pain in joint, shoulder region Chronic bilateral low back pain with right-sided sciatica documented in this encounter Additional Health Concerns Assessment Noted Time PHQ-9 Depression Total Score: 13 024 10:38 AM EDT documented as of this encounter Care Teams Lab Analyst Relationship Specialty Start Date End Date Yulia Joshi MD [address] [place] [address] PCP - General Family Medicine 10/22/19 documented as of this encounter
--- OUTSIDE RECORDS SUMMARY | 2024-12-17 11:36 | XMS_ITS | Encounter Summary ---
Author Organization [employer] Address [address] [facility] [address]t [place] [address] Care Team Providers Care Test Kitchen Home Economist Name Role Phone Yulia Joshi MD Primary Care Provider [phone] Reason for Visit * Reason Comments Med Refill Encounter Details Date Type Department Care Team (Late st Contact Info) Description 11/14/2023 Refill [facility] CHC MED & PEDS [address] [place] [phone] Yulia Joshi MD [address] [place] [address] Chronic right shoulder pain; Chronic bilateral low [...] Description 12/22/2024 2:00 PM EST Clinical Support [facility] MEDICINE [address] [place] [address] Dafne Agee RN 12/28/2024 1:00 PM EST Office Visit [facility] CHC ADULT DENTAL [address] [place] [address] Attila Smith, DMD [address] [place] [address] documented as of this encounter Visit Diagnoses Diagnosis Chronic right shoulder pain Pain in joint, shoulder region Chronic bilateral low back pain with right-sided sciatica documented in this encounter Additional Health Concerns Assessment Noted Time PHQ-9 Depression Total Score: 13 024 10:38 AM EDT documented as of this encounter Care Teams Test Kitchen Home Economist Relationship Specialty Start Date End Date Yulia Joshi MD [address] [place] [address] PCP - General Family Medicine 10/22/19 documented as of this encounter
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
--- OUTSIDE RECORDS SUMMARY | 2024-12-17 11:36 | XMS_ITS | Encounter Summary ---
Author Organization [employer] Address [address] [place] [address] 7 [place] [address] Care Team Providers Care Director Of Medical Review Name Role Phone Yulia Joshi MD Primary Care Provider [phone] Encounter Details Date Type Department Care Team (Late Contact Info) Description 07/03/2022 Orders Only [facility] MEDICINE [address] [place] [address] [phone] Yulia Joshi MD [address] [place] [address] [phone] Wart on thumb (Primary Dx) Social History Tobacco Use Types Packs/Day Years Used Date Smoking Tobacco: Every Day Cigarettes Smokeless Tobacco: Never Alcohol Use Standard Drinks/Week Comments Not Currently 0 (1 standard drink = 0.6 oz pur e alcohol) PHQ-2 Answer Date Recorded Patient Health Questionnaire-2 Score 0 06/28/2022 Depression Answer Date Recorded Patient Health Questionnaire-2 Score 0 06/28/2022 Sex and Gender Information Value Date Recorded Sex Assigned at Male 12/17/2021 10:31 AM EDT Legal Sex Male 10:31 AM EDT Gender Identity Male 12/17/2021 10:31 AM EDT Sexual Orientation Choose not to disclose 2021 10:31 AM EDT COVID-19 Exposure Response Date Recorded In the last 10 days, have yo u been in contact with someone who was confirmed or suspected to have Coronavirus/COVID-19? No / Unsure 06/28/2022 9:14 AM EDT documented as of this encounter Plan of Treatment Upcoming Encounters Date Type Department Care Team (Late Contact Info) Description 12/22/2024 2:00 PM EST [facility] Support [facility] [address] [place] [address] [place] [address] Dafne Agee, RN 12/28/2024 1:00 PM EST Office Visit [facility] ADULT DENTAL [address] [place] [address] Attila Smith, DMD [address] [place] [address] documented as of this encounter Visit Diagnoses Diagnosis Wart on thumb- Primary documented in this encounter Care Teams Director Of Medical Review Relationship Specialty Start Date End Date Yulia Joshi MD [address] [place] [address] PCP - General Family Medicine 10/22/19 documented as of this encounter
--- OUTSIDE RECORDS SUMMARY | 2024-12-17 11:36 | XMS_ITS | Clinical Summary ---
Author Organization [employer] Address [address] [place] [address] 7t [place] [address] Care Team Providers Care Vacuum Frame Operator Name Role Phone Yulia Joshi MD Primary Care Provider [phone] Allergies No known active allergies Medications cholecalcifero l (SM Vitamin D3) 100 MCG (4000 UT) capsule Take 1 capsule by mouth in the morning. 05/01/19 19 Active ipratropium (Atrovent) 0.03 % nasal spray Administer 2 sprays into affected nostril(s) every 12 (twelve) hours. 06/11/19 19 Active gabapentin (Neurontin) 300 MG capsuleIndicat ions:Ulnar neuropathy at elbow of right upper extremity Take 1 capsule (300 mg) by mouth 3 times daily. 90 capsule 02/04/20 24 025 Active traMADol (Ultram) 50 MG tabletIndicati ons:Chronic right shoulder pain,Chronic bilateral low back pain with right-sided sciatica Take 2 tablets (100 mg) by mouth every 8 (eight) hours if needed for severe pain for up to 28 days. 168 tablet 11/25/19 25 025 Active traMADol (Ultram) 50 MG tabletIndicati ons:Chronic right shoulder pain,Chronic bilateral low back pain with right-sided sciatica TAKE 2 TABLETS BY MOUTH EVERY 8 HOURS NEEDED FOR SEVERE PAIN FOR UP TO 28 DAYS 168 tablet 10/22/19 25 025 Discontinued(Re order (will not trigger notification to Pharmacy)) Active Problems Problem Noted Date Diagnosed Date Right inguinal hernia 01/11/2024 Assessment & Plan (01/11/2024 7:16 PM EST): Watchful waiting for now, hernia is not painful and patient does not want surgery Described strangulation and need for immediate medical attention in that case, otherwise he can continue to monitor it for growth/changes/pain 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 12/19 Overview (05/30/2024): Dx: Chronic right shoulder pain Rx: Tramadol 50mg 1-2 tablets every 8 horus Last [employer] agreement: 05/2023 Tier II (visit every 3 months) Additional considerations: has physically demanding job Timeline: prescribed Tramadol since 2020 Loose, teeth 07/21/2023 Periodontal disease 07/21/2023 Open fracture of incisor teeth 07/21/2023 Chronic right shoulder pain 07/02/2023 Assessment & Plan (01/11/2024 7:17 PM EST): Continue stretching as time allows, and exercising in the gym Acupuncture offered and described Continue Tramadol per [employer] agreement Assessment & Plan (07/02/2023 8:14 AM EDT): Continue stretching as time allows, and exercising in the gym Acupuncture offered and described Continue Tramadol per [employer] agreement Wart on thumb 07/03/2022 Chronic pain of both shoulders 07/01/2022 Assessment & Plan (07/01/2022 5:26 AM EDT): This is pt's biggest complaint because he wants to be able to work fulltime to support his family Pt is enrolled in [employer] WORK[employer] program, discussed that urine drug screening will be random and more frequent due to positive for oxycodone, discussed dangers of using unknown medications and that if that is a habit, I cannot prescribe safely to him. He says he understands Increase Tramadol to match his use Chronic bilateral low back pain with right-sided sciatica 07/01/2022 Assessment & Plan (07/02/2023 8:14 AM EDT): See plan for shoulder pain He stretches before and after work, to continue this Assessment & Plan (07/01/2022 5:26 AM EDT): See plan for shoulder pain Exacerbated by work He stretches before and after work, to continue this Letter given in support of workplace modifications so that he does not have to do overhead motions History of substance abuse (CMS/HCC) 04/16/2018 Elevated blood-pressure read ing without diagnosis of hypertension 04/16/2018 Assessment & Plan (07/01/2022 5:23 AM EDT): Borderline today Discussed DASH diet Recurrent major depressive episodes, moderate (C MS/HCC) 06/11/2016 Assessment & Plan (07/02/2023 8:13 AM EDT): Declines meds or therapy No SI/HI Will try to get outside more and be more physically active with his children H/O: attempted suicide 06/11/2016 Encounters Date Type Department Care Team Description 12/08/2024 2:00 PM EDT Office Visit [facility] ADULT DENTAL [address] [place] [address] Attila Smith DMD Dental caries (Primary Dx); Fracture of tooth enamel and dentin 11/26/2024 1:30 PM EDT Office Visit [facility] ADULT DENTAL [address] [place] [address] Babatunde Wick Dental calculus (Primary Dx) 11/24/2024 Refill [facility] MED & PEDS [address] [place] [address] Yulia Joshi MD Chronic right shoulder pain; Chronic bilateral low back pain with right-sided sciatica 11/22/2024 Orders Only [facility] ADULT DENTAL [address] [place] [address] Attila Smith DMD 11/05/2024 Travel 10/29/2024 9:00 AM EDT Office Visit [facility] ADULT DENTAL [address] [place] [address] Babatunde Wick Dental calculus (Primary Dx) 10/21/2024 Refill [facility] MEDICINE [address] [place] [address] Yulia Joshi MD Chronic right shoulder pain; Chronic bilateral low back pain with right-sided sciatica 10/20/2024 Telephone [facility] [address] [place] [address] Yulia Joshi MD 10/01/2024 3:15 PM EDT Office Visit [facility] MEDICINE [address] [place] [phone] Yulia Joshi MD Neuropathy (Primary Dx); Screening for colon cancer; Lipoma, unspecified site 10/01/2024 Travel 09/21/2024 1:30 PM EDT Clinical Support [facility] MEDICINE [address] [place] [phone] Dafne Agee RN 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 (Primary Dx) 09/21/2024 Refill [facility] MEDICINE [address] [place] [phone] Dafne Agee RN Chronic right shoulder pain; Chronic bilateral low back pain with right-sided sciatica 09/21/2024 Travel from Last 3 Months Immunizations Immunization Administration Dates Next Due Hep A, Adult 12/14/2021 Pfizer Covid-19 Vaccine 12+ 01/12/2021, Social History Tobacco Use Types Packs/Day Years Used Date Smoking Tobacco: Every Day Cigarettes Smokeless Tobacco: Never Tobacco Cessation:Ready to Q uit: Not Asked; Counseling Given: Not Answered Alcohol Use Standard Drinks/Week Comments Not Currently [...] got money to buy more: Never True 05/19/2024 Within the past 12 months,th e food you bought just didn't last and you didn't have enough money to get more: Never True 03/2024 Transportation Answer Date Recorded In the past 12 months, has l ack of transportation kept you from medical appts, meetings, work or from getting things needed for daily living? No 06/19/2023 Utilities Answer Date Recorded In the past 12 months, has t he electric, gas, oil or water company threatened to shut off services in your home? Yes 05/19/2024 Depression Answer Date Recorded Patient Health Questionnaire-2 Score 1 01/09/2024 Internet Access Answer Date Recorded Internet Access Q1 Yes 05/19/2024 Internet Access Q2 Not on file 05/19/2024 Sex and Gender Information Value Date Recorded Sex Assigned at Male 12/17/2021 10:31 AM EDT Legal Sex Male 10:31 AM EDT Gender Identity Male 12/17/2021 10:31 AM EDT Sexual Orientation Choose not to disclose 2021 10:31 AM EDT Last Filed Vital Signs Vital Sign Reading Time Taken Comments Blood Pressure 128/80 12/08/2024 2:04 PM EDT Pulse 64 11/26/2024 1:26 PM EDT Temperature 37 C (98.6 F) 10/01/2024 3:15 PM EDT Respiratory Rate 18 10/01/2024 3:15 PM EDT Oxygen Saturation 98% 05/28/2024 3:32 PM EDT Inhaled Oxygen Concentration - - Weight 81.6 kg (180 lb) 10/01/2024 3:15 PM EDT Height 175.3 cm (5' 9 ) 10/01/2024 3:15 PM EDT Body Mass Index 26.58 10/01/2024 3:15 PM EDT Plan of Treatment Upcoming Encounters Date Type Department Care Team (Late st Contact Info) Description 12/22/2024 2:00 PM EST Clinical Support [facility] MEDICINE [address] [place] [address] Dafne Agee, RN 12/28/2024 1:00 PM EST Office Visit [facility] ADULT DENTAL [address] [place], [place] [phone] Attila Smith, YAHAIRA [address] [place] [address] Health Maintenance Due Date Last Done Comments CT Colonography 1978 Colonoscopy 1978 Colorectal Cancer Screening 1978 FIT DNA/Cologuard 1978 FIT 1978 FOBT 1978 HIV Screening 1978 Lipid Panel 1978 Sigmoidoscopy 1978 Disability Screening 1978 Alcohol/Substance Use Screening 1990 Hepatitis C Screening 1996 DTaP/Tdap/Td Vaccines (1 - Tdap) 1997 Hepatitis B Vaccines (1 of 3 - 19+ 3-dose series) 1997 Pneumococcal Vaccine: Pediatrics (0 to 5 Years) and At-Risk Patients (6 to 49) Years (1 of 2 - PCV) 1997 Hepatitis A Vaccines (2 of 2 - Risk 2-dose series) 06/14/2022 12/14/2021 Depression Monitoring 07/08/2024 01/09/2024 , 01/09/2024 COVID-19 Vaccine (3 - 2024-2 6 season) 2024 01/12/2021, 12/21/2020 Influenza Vaccine (#1) 2024 Dental X-Ray: Bitewings 12/09/2024 12/09/19 24, 09/16/2023 SDOH Screening 05/19/2025 05/19/2024 Dental Prophylaxis 05/28/2025 11/26/2024, 12/09/2023 Family Planning (PISQ) 05/30/2025 05/30/2024 Dental Oral Exam 06/09/2025 12/08/2024, 09/16/2023 Tobacco Screening 12/08/2025 12/08/2024 Dental X-Ray: Full Mouth 09/16/2026 024, 07/21/2023 Zoster Vaccines (1 of 2) 2028 RSV Patients and Patients Aged 60 years or older (1 - 1-dose 75+ series) 2053 Anal Pap Discontinued HIB Vaccines Aged Out No longer eligi ble based on patient's age to complete this topic HPV Vaccines Aged Out No longer eligi ble based on patient's age to complete this topic IPV Vaccines Aged Out No longer eligi ble based on patient's age to complete this topic Meningococcal B Vaccine Aged Out No l onger eligible based on patient's age to complete this topic Meningococcal Vaccine Aged Out No anna marielena eligible based on patient's age to complete this topic RSV under 20 months Aged Out No longe r eligible based on patient's age to complete this topic Rotavirus Vaccines Aged Out No longer eligible based on patient's age to complete this topic Procedures Procedure Name Priority Date/Time Associated Diagnosis Comments CASE PRESENTATION, DETAILED AND EXTENSIVE TREATMENT PLANNING Routine 12/08/2024 2:00 PM EDT Dental caries Fracture of tooth enamel and dentin PERIODIC ORAL EVALUATION - ESTABLISHED PATIENT Routine 12/08/2024 2:00 PM EDT Dental caries Fracture of tooth enamel and dentin 25 MIDFL RESIN-BASED COMPOSITE - 4 OR MORE SURFACES (ANTERIOR) Routine 12/08/2024 2:00 PM EDT Fracture of tooth enamel and dentin 7 MIFL RESIN-BASED COMPOSITE - 4 OR MORE SURFACES (ANTERIOR) Routine 12/08/2024 2:00 PM EDT Fracture of tooth enamel and dentin ORAL HYGIENE INSTRUCTIONS Routine 11/26/2024 1:30 PM EDT CASE PRESENTATION, DETAILED AND EXTENSIVE TREATMENT PLANNING Routine 11/26/2024 1:30 PM EDT PROPHYLAXIS - ADULT Routine 11/26/2024 1 :30 PM EDT CASE PRESENTATION, DETAILED AND EXTENSIVE TREATMENT PLANNING Routine 10/29/2024 9:00 AM EDT ORAL HYGIENE INSTRUCTIONS Routine 10/29/2024 9:00 AM EDT LR PERIODONTAL SCALING AND ROOT PLANING - 4 OR MORE TEETH PER QUADRANT Routine 10/29/2024 9:00 AM EDT POCT GERA-14 URINE DRUG SCREEN Routine 09/21/2024 1:41 PM EDT 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 BITEWING - SINGLE RADIOGRAPHIC IMAGE Routine 12/09/2023 1:00 PM EDT Pain, dental INTRAORAL - COMPLETE SERIES OF RADIOGRAPHIC IMAGES Routine 09/16/2023 1:00 PM EDT from Last 3 Months or Most Recently Relevant to Health Maintenance Results * POCT GERA-14 Urine Drug Screen (09/21/2024 1:41 PM EDT) THC Positive Negative Cocaine Screen, Urine Negative Negative Opiate Screen, Urine Negative Negative Methamphetamine Screen Urine Negative Negative Amphetamine Screen, Urine Negative Negative Benzodiazepines Screen, Urine Negative Negative Barbiturate Screen, Urine Negative Negative Methadone Screen, Urine Negative Negative Buprenophine Screen, Urine Negative Negative TCA, Urine Negative Negative MDMA Urine Negative Negative ng/mL Oxycodone Screen, Urine Negative Negative Phencyclidine (PCP), Urine Negative Negative Propoxyphene, Urine Negative Negative Fentanyl, Urine Negative Negative Urine Urine specimen obtained by clean catch procedure / Unknown 09/21/2024 1:41 PM EDT Dafne Rainey RN - 09/21/2024 1:41 PM EDT UTOX cup Lot#[id number] Exp. 11/23/25 Internal Pass Control Yulia Johsi MD POINT OF CARE TEST ENTER/EDIT ORDERABLES Final Result from Last [address] [place] [id number] [facility] MEDICAID STAND ADULT DENTAL - HSN PARTIAL (MED[place]ID) [place] [id number] Care Teams Vacuum Frame Operator Relationship Specialty Start Date End Date Yulia Joshi MD [address] [place] [phone] PCP - General Family Medicine 10/22/19
--- OUTSIDE RECORDS SUMMARY | 2024-12-17 11:36 | XMS_ITS | Encounter Summary ---
Author Organization [employer] Address [address] [place] [address] 7t [place] [address] Care Team Providers Care Applications Specialist Name Role Phone Yulia Joshi MD Primary Care Provider [phone] Reason for Visit * Reason Onset Date Comments Med Refill REschedule SOCIAL MEDIA JOB TITLES RV he NCNS on 07/04/22 09/16/2022 Encounter Details Date Type Department Care Team (Late st Contact Info) Description 09/16/2022 Refill [facility] MED & PEDS [address] [place] [address] Yesenia Nugent, RN ENTEROSTOMAL Chronic right shoulder pain Social History Tobacco Use Types Packs/Day Years [...] Telephone Encounter - Dafne Agee RN - 09/16/2022 2:42 PM EDT Pt NCNS for SOCIAL MEDIA JOB TITLES RV on 07/04/22 and has not called to reschedule. documented in this encounter Plan of Treatment Upcoming Encounters Date Type Department Care Team (Late st Contact Info) Description 12/22/2024 2:00 PM EST Clinical Support [facility] [address] [place] [address] Dafne Agee, RN 12/28/2024 1:00 PM EST Office Visit [facility] ADULT DENTAL [address] [place] [address] Attila Smith, DMD [address] [place] [address] documented as of this encounter Visit Diagnoses Diagnosis Chronic right shoulder pain Pain in joint, shoulder region documented in this encounter Care Teams Applications Specialist Relationship Specialty Start Date End Date Yulia Joshi MD [address] [place] [address] PCP - General Family Medicine 10/22/19 documented as of this encounter
--- OUTSIDE RECORDS SUMMARY | 2024-12-17 11:36 | XMS_ITS | Encounter Summary ---
Author Organization [employer] Address [address] [place] [address] 7 [place] [address] Care Team Providers Care Cherry Sorter Name Role Phone Yulia Joshi MD Primary Care Provider [phone] Reason for Visit * Reason Comments Med Refill Encounter Details Date Type Department Care Team (Late Contact Info) Description 07/25/2022 Refill [facility] MEDICINE [address] [place] [address] [phone] Yulia Joshi MD [address] [place] [address] [phone] Chronic right shoulder pain Social History Tobacco [...] Description 12/22/2024 2:00 PM EST Clinical Support [facility] MEDICINE [address] [place] [address] Dafne Agee, HEYDI 12/28/2024 1:00 PM EST Office Visit [facility] CH[facility] ADULT DENTAL [address] [place] [address] Attila Smith, DMD [address] [place] [address] documented as of this encounter Visit Diagnoses Diagnosis Chronic right shoulder pain Pain in joint, shoulder region documented in this encounter Care Teams Cherry Sorter Relationship Specialty Start Date End Date Yulia Joshi MD [address] [place] [address] PCP - General Family Medicine 10/22/19 documented as of this encounter
--- OUTSIDE RECORDS SUMMARY | 2024-12-17 11:36 | XMS_ITS | Encounter Summary ---
Author Organization [employer] Address [address] [place] [address] 7 [place] [address] Care Team Providers Care Resource Center Teacher Name Role Phone Yulia Joshi MD Primary Care Provider [phone] Reason for Visit * Reason Comments Med Refill Encounter Details Date Type Department Care Team (Late st Contact Info) Description 08/16/2022 Refill [facility] MED & PEDS [address] [place], [place] [phone] Guillermina Ho MD [address] [place], [place] [phone] Chronic right shoulder pain Social History Tobacco [...] Description 12/22/2024 2:00 PM EST Clinical Support [facility] MEDICINE [address] [place], [place] [phone] Dafne Agee RN 12/28/2024 1:00 PM EST [facility] Visit [facility] [address] [place] [address] Wojciech Smithie, DMD [address] [place] [address] documented as of this encounter Visit Diagnoses Diagnosis Chronic right shoulder pain Pain in joint, shoulder region documented in this encounter Care Teams Resource Center Teacher Relationship Specialty Start Date End Date Yulia Joshi MD [address] [place] [phone] PCP - General Family Medicine 10/22/19 documented as of this encounter
== END 2024-12-17 10:57 | disposition home or self-care (01) ==
LOC: HO.HGS 10:16
PROVIDERS: PCP General Practice; Visit Provider Surgery
DX: D17.22 Benign lipomatous neoplasm of skin and subcutaneous tissue of left arm (principal)
CPT/HCPCS: 99204

== ENCOUNTER → 2024-12-17 10:16 | Outpatient (BNVA) | payer MEDICAID, SELFPAY | PROVIDERS: PCP General Practice; Visit Provider Surgery | DX: Z01.818 Encounter for other preprocedural examination (principal); D17.22 Benign lipomatous neoplasm of skin and subcutaneous tissue of left arm | CPT/HCPCS: 99202 ==